=== PATIENT | female | born 1930 | race Caucasian/White ===

== ENCOUNTER → 2018-01-20 09:00 | Outpatient (CLI) | payer OTHER ==
[~2018-01-20] VITALS: Ht 162.6 cm; Wt 54.4 kg
[~2018-01-20 09:00] MED LIST: ASPIR-LOW81 MG PO; CRESTOR10 MG PO; LOTREL 5-20 MG1 CAP PO; TOPROL XL50 MG PO
== END | disposition home or self-care (01) ==
LOC: RAD 09:00 → LAB 09:00 → SURH 01-24 06:00 → O/R 01-24 06:00 → SURH 01-24 08:00 → EDSTATUS 01-24 08:00 → SURH 01-24 11:30
DX: M25.562 Pain in left knee (principal); Z01.810 Encounter for preprocedural cardiovascular examination; Z01.812 Encounter for preprocedural laboratory examination

== ENCOUNTER 2018-04-18 07:00 | Inpatient (IN) | payer OTHER ==
[~2018-04-18] VITALS: Ht 160 cm; Wt 52.6 kg
[2018-04-28] MEDS ORDERED: INTEGRA PLUS C1 EACH PO (06:22)
[2018-04-28] MEDS ORDERED: OXYC1TAB9 PO (06:22)
[2018-04-28] MEDS ORDERED: XARELTO10 MG PO (06:22)
== END 2018-04-28 14:58 | DRG 470 ==
LOC: O/R 04-25 05:05 → SURH 04-25 05:05
PROVIDERS: Orthopaedic Surgery Sports Medicine
PROC: 0SRD0J9 Replacement of Left Knee Joint with Synthetic Substitute, Cemented, Open Approach (ICD-10-PCS; principal; 2018-04-25 09:00)
DX: M17.12 Unilateral primary osteoarthritis, left knee (principal)